=== PATIENT | female | born 1975 | race Two or more races ===

== ENCOUNTER 2017-05-28 12:18 | Outpatient (CLI) | payer OTHER | END 2017-05-28 16:49 | disposition home or self-care (01) | LOC: RX STUDY 12:18 | DX: N93.0 Postcoital and contact bleeding (principal) ==

== ENCOUNTER 2017-11-11 13:22 | Outpatient (CLI) | payer OTHER | END 2017-11-11 16:52 | disposition home or self-care (01) | LOC: RAD 13:22 | DX: I10 Essential (primary) hypertension (principal) ==

== ENCOUNTER 2017-11-24 05:48 | Day surgery (SDC) | payer OTHER ==
[~2017-11-24 05:48] MED LIST: AZELASTINE137 MCG/0.; FLONASE16 GM; GAS-X62.5 MG PO; GAVISCON PO; PROTONIX PO; PROVENTIL HFA6.7 GM IH; TYLENOL ARTHRI650 MG PO; ZANTAC150 M3 PO; ZYRTEC PO
[2017-11-24] MEDS ORDERED: PERCOCET 5-3251 EACH PO (11:09)
== END 2017-11-24 12:30 | disposition home or self-care (01) ==
LOC: CIR.AMB 05:48
DX: N80.1 Endometriosis of ovary (principal)